=== PATIENT | male | born 1970 | race Caucasian/White ===

== ENCOUNTER → 2017-10-20 | Outpatient (CLI) | payer BC ==
[~2017-10-20] MED LIST: AMOX500T10 PO; BLOO1STR16 MC; DIA5 PO; GLY5 PO; LANC-1295 MC; METH-543 PO; OMEP-125 PO; OMEP-218; OXYC-865 PO; PER PO
== END ==
LOC: LAB 08:22
PROVIDERS: ATTEND Internal Medicine
DX: M60.009 Infective myositis, unspecified site (principal)
CPT/HCPCS: 36415; 86140

== ENCOUNTER → 2017-11-29 | Outpatient (REF) | payer BC | LOC: ZZSENDIN 09:48 | PROVIDERS: ATTEND Physician Assistant | DX: B95.62 Methicillin resistant Staphylococcus aureus infection as the cause of diseases classified elsewhere (principal) | CPT/HCPCS: 86140 ==

== ENCOUNTER → 2017-12-07 | Outpatient (REF) | payer BC | LOC: ZZSENDIN 11:05 | PROVIDERS: ATTEND Physician Assistant | DX: B95.62 Methicillin resistant Staphylococcus aureus infection as the cause of diseases classified elsewhere (principal) | CPT/HCPCS: 86140 ==

== ENCOUNTER → 2018-03-29 | Outpatient (CLI) | payer BC ==
--- NOTE | 2018-03-29 09:30 | RADIOLOGY IMAGING REPORT ---
FACILITY: [facility] - [place] PATIENT NAME: Arturo Syed : 1970 MR: [id number] V: [id number] EXAM DATE: ORDERING PHYSICIAN: JANA CHOWDARY TECHNOLOGIST: Location: [facility] [place] Patient: Arturo Syed : 1970 Visit/Account:[id number] Date of Sevice: 03/29/2018 CHEST W/O CONTRAST History: Lung nodule TECHNIQUE: Contiguous axial images were performed through the chest to the level of the adrenal gla nds. No IV contrast was administered. Coronal and sagittal reformatting was also performed. Dose Lowe ring Technique One of the following dose optimization techniques was utilized in the performance of this exam: Autom ated exposure control; adjustment of the mA and/or kV according to the patient's size; or use of an i terative reconstruction technique. Specific details can be referenced in the facility's radiology C T exam operational policy. COMPARISON STUDIES: CT of the chest August 22, 2013 and single view of the chest July 03, 2017. Lungs / Pleura: There is very mild linear stranding seen in the periphery of the upper lobes not ap preciated on the prior CT although likely representing a small amount of scarring/atelectasis. There is no evidence of pulmonary nodules or pulmonary infiltrates or pleural effusions. Mediastinum/nodes: negative. Heart and vessels: negative. Musculoskeletal / Body wall: Mild spondylotic changes of the thoracic spine and of the shoulder yehuda nts Upper abdomen: Faint hyperdense material is seen layering within the gallbladder possibly stones or sludge IMPRESSION: Free mild linear stranding in the periphery of the upper lobes not appreciated on the prior CT althou gh likely representing a small amount of scarring versus atelectasis No evidence of a pulmonary nodule Faint hyperdense material layering within the gallbladder, possibly stones or sludge. If of concern, but ultrasound may be helpful , Report Dictated By: Nicki Peres MD at 03/29/2018 9:16 AM Report E-Signed By: Nicki Peres MD at 03/29/2018 9:26 AM WSN:[email or web address]
== END ==
LOC: CT 03-27 13:31
PROVIDERS: ATTEND Internal Medicine Sleep Medicine
DX: R92.8 Other abnormal and inconclusive findings on diagnostic imaging of breast (principal)
CPT/HCPCS: 71250

== ENCOUNTER 2018-10-15 14:30 | Outpatient (RCR) | payer BC ==
--- NOTE | 2018-08-17 01:27 | PT INITIAL EVALUATION ---
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 REHAB PROBLEM LIST: Slow healing wound with foot deformity from previous trauma injury and callus formation. PREVIOUS MEDICAL HISTORY: DMII with neuropathy OCCUPATION: [employer] OBJECTIVE: Wound currently measures: 1.5cm L x 1.5cm W x 0.3cm D with callus formation surrounding area of depth at center and discolored tissue noted beneath callus as well, indicating possible deeper tissue injury. ASSESSMENT: Non-excisional debridement completed with the use of scissors and tweezers to a depth of subcutaneous tissue in order to bevel callus away from center of wound bed. Tough callus addressed with vasaline and covered with mepilex dressing to retain moisture. Short Term Goals 1. Pt to maintain a clean, dry and intact dressing between PT visits 2. Wound bed to demonstrate decreased callus formation and 100% granulation base 3. Edged of wound to gradually epithelialize without signs or symptoms of infection noted 4. Pt to demo understanding of prevention of further callus formation and proper foot wear selection to minimize friction. Patient's Goals Wound healing without complication PLAN: Patient to be seen for non-excisional, selective debridement to address non-viable tissue, slough and callus formation. PT to select advanced wound care products to encourage moist wound healing and facilitate faster wound closure to minimize risk of infection. 2x/Week, decreasing to once weekly as tolerated for up to 3 months. Thank you for this referral. If you have any questions, comments, or concerns about this report or plan, please contact me at . H. Arabella Russell, PT, MPT, OMS MTDD
--- NOTE | 2018-09-11 14:00 | NUR ---
This Physical Therapist or Setter [employer] Spinning Lathe was present for the entire physical therapy session directing the services, making the skilled judgement, and was not engaged in treating another patient or doing another task at the same time as the treatment session. Addendum: 09/11/18 at 1544 by STANLEY HAIRSTON PT Amended: Links added.
[2018-10-22] MEDS ORDERED: METF-452 PO (12:52)
[2018-10-22] MEDS ORDERED: LISI5TAB25 PO (12:52)
[2018-10-22] MEDS ORDERED: GLIM2TAB43 PO (12:52)
[2018-10-22] MEDS ORDERED: OMEP-125 PO (12:53)
== END 2018-11-06 ==
LOC: PT 14:30
PROVIDERS: ATTEND Physician Assistant
DX: E11.621 Type 2 diabetes mellitus with foot ulcer (principal); L97.512 Non-pressure chronic ulcer of other part of right foot with fat layer exposed
CPT/HCPCS: 97161